=== PATIENT | male | born 1985 | race Hispanic/Latino ===

== ENCOUNTER 2018-12-08 01:02 | Inpatient (IN) | payer SELFPAY ==
[2018-12-08 01:48] LABS: Absolute Lymphocytes (CBC) 1.1 K/uL (0.7-4.9); Absolute Monocytes 0.7 K/uL (0.1-1.3); Absolute Neutrophil 8.6 K/uL (1.8-8.0); Basophils % 0.5 % (0-1.3); Eosinophils % 2.8 % (0-4.4); Hematocrit 41.5 % (39.6-49.0); Lymphocytes % 10.6 % (15.3-44.8); MPV 9.4 fL (7.6-11.3); Monocytes % 6.5 % (3.3-12.3); RBC Red Blood Cell Count 4.92 M/uL (4.33-5.43)
[2018-12-08 02:04] LABS: Albumin 3.6 g/dL (3.4-5.0); Bilirubin Direct 0.7 mg/dL (0-0.2); Bilirubin Total 1.4 mg/dL (0.2-1.0); Potassium 3.6 mmol/L (3.5-5.1); Protein, Total 7.8 g/dL (6.4-8.2)
[2018-12-08] MEDS ORDERED: NA CHLORIDE 0.9% 1,000 ML ONE (02:13)
[2018-12-08] MEDS ORDERED: PIPER/TAZO/NS 3.375gm 3.375 GM/100 ML BAG ONE (05:52)
[2018-12-08] MEDS ORDERED: ACETAMINOPHEN 500 MG TAB ONE ×2 (07:02→08:43)
--- NOTE | 2018-12-08 07:10 | ER ---
Nurse's Notes [facility] Name: Adriano Miller Age: 33 yrs Sex: Male : 1985 Arrival Date: 12/08/2018 Time: 01:07 Bed 13 Private MD: Diagnosis: Cholecystitis, unspecified Presentation: 12/08 01:08 Presenting complaint: Patient states: I began having abdominal pain on Thursday after jb4 being prescribed medications for an ear infection. 01:08 Transition of care: patient was not received from another setting of care. Onset of jb4 symptoms was December 06, 2018. Risk Assessment: Do you want to hurt yourself or someone else? Patient reports no desire to harm self or others. Initial Sepsis Screen: Does the patient meet any 2 criteria? RR > 20 per min. HR > 90 bpm. Yes Does the patient have a suspected source of infection? Yes: Acute abdominal pain If YES to both, name of provider notified: Lorenzo VARGAS Care prior to arrival: None. 01:08 Method Of Arrival: Ambulatory jb4 01:08 Acuity: ELIZABETH 3 jb4 Triage Assessment: 07:00 General: Appears in no apparent distress. uncomfortable, ill, Behavior is calm, bp cooperative, appropriate for age. Historical: - Allergies: 01:08 No Known Allergies; jb4 - Home Meds: 01:08 Motrin Oral [Active]; Cipro Oral [Active]; jb4 - PMHx: 01:08 None; jb4 - PSHx: 01:08 Knee surgery; jb4 - Immunization history:: Adult Immunizations up to date. - Social history:: Smoking status: Patient/guardian denies using tobacco, Patient/guardian denies using alcohol. - Ebola Screening: : No symptoms or risks identified at this time. Screenin:13 Abuse screen: Denies threats or abuse. Nutritional screening: No deficits noted. jb4 Tuberculosis screening: No symptoms or risk factors identified. Fall Risk IV access (20 points). Total Hernandez Fall Scale indicates No Risk (0-24 pts). Assessment: 01:08 General: Appears in no apparent distress. uncomfortable, Behavior is calm, cooperative, jb4 appropriate for age. Pain: Complains of pain in epigastric area and right upper quadrant Pain does not radiate. Pain currently is 6 out of 10 on a pain scale. Quality of pain is described as stabbing. Neuro: Level of Consciousness is awake, alert, obeys commands, Oriented to person, place, time, situation. Cardiovascular: Patient's skin is warm and dry. Respiratory: Reports pain with respiration Airway is patent Respiratory effort is even, unlabored, Respiratory pattern is regular, symmetrical. GI: Bowel sounds present X 4 quads. Abd is soft X 4 quads Abd is non tender in umbilical area, suprapubic area, left upper quadrant, right lower quadrant and left lower quadrant Abdomen is tender to palpation in epigastric area and right upper quadrant Reports upper abdominal pain. : No signs and/or symptoms were reported regarding the genitourinary system. EENT: No signs and/or symptoms were reported regarding the EENT system. Derm: Skin is intact, Skin is pink, warm \T\ dry. Musculoskeletal: Circulation, motion, and sensation intact. 02:13 Reassessment: Patient appears in no apparent distress at this time. Patient and/or jb4 family updated on plan of care and expected duration. Pain level reassessed. Patient is alert, oriented x 3, equal unlabored respirations, skin warm/dry/pink. Pt taken to CT. 03:20 Reassessment: Patient appears in no apparent distress at this time. Patient and/or jb4 family updated on plan of care and expected duration. Pain level reassessed. Patient is alert, oriented x 3, equal unlabored respirations, skin warm/dry/pink. 04:34 Reassessment: Patient appears in no apparent distress at this time. Patient and/or jb4 family updated on plan of care and expected duration. Pain level reassessed. Patient is alert, oriented x 3, equal unlabored respirations, skin warm/dry/pink. Patient states feeling better. 05:33 Reassessment: Patient appears in no apparent distress at this time. Patient and/or jb4 family updated on plan of care and expected duration. Pain level reassessed. Patient is alert, oriented x 3, equal unlabored respirations, skin warm/dry/pink. 06:20 Reassessment: Pt reports feeling like his temp is increasing, temp rechecked. Temp 99.0 jb4 oral. 06:50 Reassessment: Pt reports having a headache, provider notified, see MAR for orders. jb4 07:00 Reassessment: RECD REPORT FROM BERNARDO BOND. 33YO HM P/W ABDOMINAL PAIN. PERICARDIAL AND bp PLEURAL EFFUSION NOTED ON CT. ADMIT IN PROCESS. 08:01 Reassessment: OR AT B/S FOR TRANSPORT. bp Vital Signs: 01:08 BP 128 / 73; Pulse 107; Resp 24; Temp 98.8(O); Pulse Ox 96% on R/A; Weight 104.33 kg jb4 (R); Height 5 ft. 11 in. (180.34 cm) (R); Pain 6/10; 03:15 BP 103 / 78; Pulse 113; Resp 16; Pulse Ox 95% on R/A; jb4 04:34 BP 108 / 73; Pulse 99; Resp 16; Pulse Ox 93% on R/A; jb4 05:30 BP 119 / 73; Pulse 111; Resp 20; Temp 99.3; Pulse Ox 94% on R/A; jb4 06:15 BP 114 / 69; Pulse 107; Resp 20; Temp 99.0(O); Pulse Ox 95% on R/A; jb4 07:00 BP 130 / 89; Pulse 115; Resp 16; Pulse Ox 97% on 2 lpm NC; bp 07:56 BP 116 / 80; Pulse 122; Resp 20; Temp 99.8; Pulse Ox 96% on 2 lpm NC; bp 01:08 Body Mass Index 32.08 (104.33 kg, 180.34 cm) jb4 ED Course: 01:07 Patient arrived in ED. ds1 01:08 Earl García, RONDA is Primary Nurse. jb4 01:08 Arm band placed on right wrist. jb4 01:13 Lorenzo Cooper PA is PHCP. jmm 01:13 Edgardo Levy MD is Attending Physician. jmm 01:20 Triage completed. jb4 01:45 Inserted saline lock: 20 gauge in right antecubital area, using aseptic technique. jb4 Blood collected. 01:57 Radiology exam delayed due to lab results not completed at this time. (BUN/Creatinine). kw1 02:00 Initial lab(s) drawn, by me, sent to lab. First set of blood cultures drawn by me, jb4 Second set of blood cultures drawn by me. 02:13 Patient has correct armband on for positive identification. Placed in gown. Bed in low jb4 position. Call light in reach. Side rails up X 1. Pulse ox on. NIBP on. 02:38 CT Abd/Pelvis - W/Contrast In Process Unspecified. EDMS 07:09 Jaun Howard MD is Hospitalizing Provider. tw4 08:05 No provider procedures requiring assistance completed. Patient admitted, IV remains in bp place. Administered Medications: 02:00 Drug: NS 0.9% 1000 ml Route: IV; Rate: 1 bolus; Site: right antecubital; jb4 03:00 Follow up: Response: No adverse reaction; IV Status: Completed infusion; IV Intake: jb4 1000ml 05:45 Drug: Zosyn 3.375 grams Route: IVPB; Infused Over: 60 mins; Site: right antecubital; jb4 06:45 Follow up: Response: No adverse reaction; IV Status: Completed infusion; IV Intake: jb4 100ml 06:54 Drug: Tylenol 500 mg Route: PO; jb4 Intake: 03:00 IV: 1000ml; Total: 1000ml. jb4 06:45 IV: 100ml; Total: 1100ml. jb4 Outcome: 07:09 Decision to Hospitalize by Provider. tw4 08:06 Admitted to OR accompanied by nurse, family with patient, via wheelchair, with chart. bp 08:06 Condition: stable 08:06 Instructed on the need for admit. 08:11 Patient left the ED. bp Signatures: Dispatcher [employer] EDHI Lorenzo Cooper PA PA jmm Sanford, Demi ds1 Earl García RN RN jb4 Vahid Mccoy RN RN bp Veronica Mohan kw1 Edgardo Levy MD MD tw4 Corrections: (The following items were deleted from the chart) 05:50 01:08 Respiratory: Airway is patent Respiratory effort is even, unlabored, Respiratory jb4 pattern is regular, symmetrical, jb4 07:55 07:30 BP 130 / 89; Pulse 115bpm; Resp 16bpm; Pulse Ox 97% 2 lpm Nasal Cannula; Temp bp 98.5F; bp
--- NOTE | 2018-12-08 07:10 | EDPHYS ---
Physician Documentation [facility] Name: Adriano Miller Age: 33 yrs Sex: Male : 1985 Arrival Date: 12/08/2018 Time: 01:07 Bed 13 Private MD: ED Physician Edgardo Levy HPI: 12/08 01:14 This 33 yrs old Male presents to ER via Ambulatory with complaints of jmm Abdominal Pain. 01:14 The patient presents with abdominal pain. Onset: The symptoms/episode began/occurred jmm gradually, 1 day(s) ago. The symptoms do not radiate. Associated signs and symptoms: Pertinent negatives: nausea and vomiting, diarrhea. The symptoms are described as achy. This is a 33 year old male with no chronic medical conditions that presents to the ED with complaints of abdominal pain beginning this past Thursday. Denies vomiting or diarrhea. Patient is currently on cipro for otitis media. . Historical: - Allergies: 01:08 No Known Allergies; jb4 - Home Meds: 01:08 Motrin Oral [Active]; Cipro Oral [Active]; jb4 - PMHx: 01:08 None; jb4 - PSHx: 01:08 Knee surgery; jb4 - Immunization history:: Adult Immunizations up to date. - Social history:: Smoking status: Patient/guardian denies using tobacco, Patient/guardian denies using alcohol. - Ebola Screening: : No symptoms or risks identified at this time. ROS: 01:14 Eyes: Negative for injury, pain, redness, and discharge, Cardiovascular: Negative for jmm chest pain, palpitations, and edema, Respiratory: Negative for shortness of breath, cough, wheezing, and pleuritic chest pain. 01:14 Constitutional: Positive for fever. 01:14 Abdomen/GI: Positive for abdominal pain. 01:14 All other systems are negative. Exam: 01:14 Constitutional: This is a well developed, well nourished patient who is awake, alert, jmm and in no acute distress. Head/Face: atraumatic. Eyes: EOMI, no conjunctival erythema appreciated ENT: Moist Mucus Membranes Neck: Trachea midline, Supple Chest/axilla: Normal chest wall appearance and motion. Cardiovascular: Regular rate and rhythm. No edema appreciated Respiratory: Normal respirations, no respiratory distress appreciated Abdomen/GI: Non distended, soft Back: Normal ROM Skin: General appearance color normal MS/ Extremity: Moves all extremities, no obvious deformities appreciated, no edema noted to the lower extremities Neuro: Awake and alert, normal gait Psych: Behavior is normal, Mood is normal, Patient is cooperative and pleasant 01:14 Abdomen/GI: Inspection: abdomen appears normal, Bowel sounds: normal, Palpation: soft, moderate abdominal tenderness, in the right upper quadrant. Vital Signs: 01:08 BP 128 / 73; Pulse 107; Resp 24; Temp 98.8(O); Pulse Ox 96% on R/A; Weight 104.33 kg jb4 (R); Height 5 ft. 11 in. (180.34 cm) (R); Pain 6/10; 03:15 BP 103 / 78; Pulse 113; Resp 16; Pulse Ox 95% on R/A; jb4 04:34 BP 108 / 73; Pulse 99; Resp 16; Pulse Ox 93% on R/A; jb4 05:30 BP 119 / 73; Pulse 111; Resp 20; Temp 99.3; Pulse Ox 94% on R/A; jb4 06:15 BP 114 / 69; Pulse 107; Resp 20; Temp 99.0(O); Pulse Ox 95% on R/A; jb4 07:00 BP 130 / 89; Pulse 115; Resp 16; Pulse Ox 97% on 2 lpm NC; bp 07:56 BP 116 / 80; Pulse 122; Resp 20; Temp 99.8; Pulse Ox 96% on 2 lpm NC; bp 01:08 Body Mass Index 32.08 (104.33 kg, 180.34 cm) [facility] MDM: 01:14 Patient medically screened. [facility] 12/08 01:17 Order name: Basic Metabolic Panel; Complete Time: 02:06 [facility] 12/08 01:17 Order name: CBC with Diff; Complete Time: 01:52 [facility] 12/08 01:17 Order name: Creatinine for Radiology; Complete Time: 02:06 [facility] 12/08 01:17 Order name: Hepatic Function; Complete Time: 02:06 [facility] 12/08 01:17 Order name: Lipase; Complete Time: 02:06 [facility] 12/08 01:17 Order name: Blood Culture Adult (2) [facility] 12/08 01:17 Order name: Lactate; Complete Time: 02:06 [facility] 12/08 07:14 Order name: Basic Metabolic Panel [facility] 12/08 07:14 Order name: Basic Metabolic Panel [facility] 12/08 07:14 Order name: CBC with Automated Diff [facility] 12/08 07:14 Order name: CBC with Automated Diff [facility] 12/08 07:14 Order name: Lipase [facility] 12/08 07:14 Order name: Lipase [facility] 12/08 07:14 Order name: Liver (Hepatic) Function [facility] 12/08 01:17 Order name: IV Saline Lock; Complete Time: 02:22 [facility] 12/08 01:17 Order name: Labs collected and sent; Complete Time: 02:22 [facility] 12/08 01:19 Order name: CT Abd/Pelvis - W/Contrast [facility] 12/08 07:14 Order name: NPO [facility] 12/08 07:14 Order name: Liver (Hepatic) Function [facility] 12/08 07:43 Order name: US Abdomen Complete tw4 Administered Medications: 02:00 Drug: NS 0.9% 1000 ml Route: IV; Rate: 1 bolus; Site: right antecubital; jb4 03:00 Follow up: Response: No adverse reaction; IV Status: Completed infusion; IV Intake: jb4 1000ml 05:45 Drug: Zosyn 3.375 grams Route: IVPB; Infused Over: 60 mins; Site: right antecubital; jb4 06:45 Follow up: Response: No adverse reaction; IV Status: Completed infusion; IV Intake: jb4 100ml 06:54 Drug: Tylenol 500 mg Route: PO; jb4 Disposition: 07:07 Co-signature as Attending Physician, Edgardo Levy MD I agree with the assessment and 4 plan of care. Disposition: 12/08/18 07:09 Hospitalization ordered by Jaun Howard for Inpatient Admission. Preliminary diagnosis is Cholecystitis, unspecified. - Bed requested for Operating Room. - Status is Inpatient Admission. bp - Condition is Fair. - Problem is new. - Symptoms are unchanged. UTI on Admission? No Signatures: Dispatcher [employer] EDLA Taryn Benjamin Joel, PA PA jmm Williams, Irene, RN RN Earl García RN RN jb4 Vahid Mccoy RN RN bp Wadley, Terrence, MD MD tw4 Corrections: (The following items were deleted from the chart) 07:51 07:09 Hospitalization Ordered by Jaun Howard MD for Inpatient Admission. Preliminary bd diagnosis is Cholecystitis, unspecified. Bed requested for Telemetry/MedSurg (Inpatient). Status is Inpatient Admission. Condition is Fair. Problem is new. Symptoms are unchanged. UTI on Admission? No. tw4 08:02 07:51 12/08/2018 07:09 Hospitalization Ordered by Jaun Howard MD for Inpatient iw Admission. Preliminary diagnosis is Cholecystitis, unspecified. Bed requested for Telemetry/MedSurg (Inpatient). Status is Inpatient Admission. Condition is Fair. Problem is new. Symptoms are unchanged. UTI on Admission? No. bd 08:11 08:02 12/08/2018 07:09 Hospitalization Ordered by Jaun Howard MD for Inpatient bp Admission. Preliminary diagnosis is Cholecystitis, unspecified. Bed requested for Operating Room. Status is Inpatient Admission. Condition is Fair. Problem is new. Symptoms are unchanged. UTI on Admission? No. iw
[2018-12-08] MEDS ORDERED: MORPHINE 4 MG/ML SYR IV PRN (07:12)
[2018-12-08] MEDS ORDERED: D5 0.45 NS 1,000 ML IV SCH (08:00)
[2018-12-08] MEDS ORDERED: BUPIVACAINE 0.5% PF 10 ML VIAL ONE (08:15)
--- NOTE | 2018-12-08 08:23 | RAD REPORT ---
EXAM DESCRIPTION: US - Abdomen Exam Limited - 12/08/2018 8:07 am CLINICAL HISTORY: Abdominal pain COMPARISON: CT study December 08 FINDINGS: Gallbladder size is normal. No gallstones are identified. No significant quantity of sludg e seen. Gallbladder wall is thickened. There is a trace amount of pericholecystic fluid seen. Common bile duct is normal with no common duct stone identified. IMPRESSION: Gallbladder wall is thickened with pericholecystic fluid. No gallstones identifiable. Findings could represent an acalculous cholecystitis if there are supporting clinical findings. Gallb ladder findings are potentially a secondary response to acute hepatic parenchymal disease for a syste luis alberto illness not otherwise evident on available imaging.
[2018-12-08] MEDS ORDERED: Ringers Lactate 1,000 ML IV ONE (08:25)
[2018-12-08] MEDS ORDERED: PROPOFOL 200 MG/20 ML VIAL IV ONE (08:30)
[2018-12-08] MEDS ORDERED: ROCURONIUM 50 MG/5 ML VIAL IV ONE (08:31)
[2018-12-08] MEDS ORDERED: GLYCOPYRROLATE 0.2 MG/ML SYR ONE (08:32)
[2018-12-08] MEDS ORDERED: LIDOCAINE 2% MPF 5 ML VIAL ONE (08:34)
[2018-12-08] MEDS ORDERED: FENTANYL CITR 250 MCG/5 ML ONE (08:34)
[2018-12-08] MEDS ORDERED: MIDAZOLAM HCL 2 MG/2 ML INJ ONE (08:36)
[2018-12-08] MEDS ORDERED: ONDANSETRON 4 MG/2 ML VIAL ONE (08:39)
[2018-12-08] MEDS ORDERED: NEOSTIGMINE 1 MG/ML -10 ML VIAL ONE (08:39)
[2018-12-08 09:56] VITALS: BMI 32.1
--- NOTE | 2018-12-08 10:17 | ECHO ---
HEIGHT: 5 ft 11 in WEIGHT: 230 lb 0 oz DATE OF STUDY: 12/08/[address]: Jaun Howard MD 2-DIMENSIONAL: YES M.MODE: YES DOPPLER: YES COLOR FLOW: YES TDS: NO PORTABLE: NO DEFINITY: NO BUBBLE STUDY: NO DIAGNOSIS: FLUID AROUND HEART CARDIAC HISTORY: CATHERIZATION: NO SURGERY: NO PROSTHETIC VALVE: NO PACEMAKER: NO MEASUREMENTS (cm) DIASTOLIC (NORMALS) SYSTOLIC (NORMALS) IVSd 1.2 (0.6-1.2) LA Diam 4.0 (1.9-4.0) LVEF 58% LVIDd 5.0 (3.5-5.7) LVIDs 3.5 (2.0-3.5) %FS 31% LVPWd 1.4 (0.6-1.2) Ao Diam 2.8 (2.0-3.7) 2 DIMENSIONAL ASSESSMENT: RIGHT ATRIUM: NORMAL LEFT ATRIUM: NORMAL RIGHT VENTRICLE: NORMAL LEFT VENTRICLE: NORMAL TRICUSPID VALVE: NOMRAL MITRAL VALVE: NORMAL PULMONIC VALVE: NORMAL AORTIC VALVE: NORMAL PERICARDIAL EFFUSION: SMALL TO MODERATE AORTIC ROOT: NORMAL LEFT VENTRICULAR WALL MOTION: NORMAL. DOPPLER/COLOR FLOW: NORMAL. COMMENTS: SMALL TO MODERATE PERICARDIAL EFFUSION AROUND THE VENTRICLES. NO TAMPONADE FINDINGS ON ECHO. OTHERWISE NORMAL 2D ECHO WITH DOPPLER. TECHNOLOGIST: JOVON HORTA
--- NOTE | 2018-12-08 10:31 | RAD REPORT ---
EXAM DESCRIPTION: CT - Head Brain Wo Cont - 12/08/2018 10:22 am CLINICAL HISTORY: Fever, headache COMPARISON: None. TECHNIQUE: Axial 5 mm thick images of the head were obtained without IV contrast. All CT scans are performed using dose optimization technique as appropriate and may include automated exposure control or mA/KV adjustment according to patient size. FINDINGS: No intracranial hemorrhage, mass, edema or shift of mid-line structures. No acute infarcti on changes seen. No abnormal extra-axial fluid collections. Ventricles are normal. Mastoid air cells and visualized portions of the paranasal sinuses are clear. No acute bony findings. IMPRESSION: Negative non-contrast CT head examination.
[2018-12-08] MEDS: FOLIC ACID 1 MG TABLET PO SCH (10:33)
[2018-12-08] MEDS: METHYLPREDNISOLONE 40 MG INJ IV SCH ×2 (10:33→16:00)
[2018-12-08] MEDS: THIAMINE HCL 100 MG TABLET PO SCH (10:33)
[2018-12-08] MEDS: FAMOTIDINE 20 MG TAB PO SCH ×2 (10:33→20:18)
[2018-12-08] MEDS: IBUPROFEN 400 MG TAB PO PRN (12:01)
[2018-12-08 12:54] LABS: RPR Titer ND
[2018-12-08 13:17] LABS: Urine Appearance CLEAR; Urine Blood 2+ (NEG); Urine Color DK YELLOW; Urine Glucose NEGATIVE (NEG); Urine Protein 1+ (NEG); Urine Specific Gravity >=1.030 (1.005-1.030); Urine pH 5.5 (5.0-7.0)
[2018-12-08 13:28] LABS: Barbiturates NEGATIVE (NEGATIVE); Benzodiazepines NEGATIVE (NEGATIVE); Cocaine NEGATIVE (NEGATIVE); METHAMPHETAM NEGATIVE (NEGATIVE); Methadone NEGATIVE (NEGATIVE); Opiates POSITIVE (NEGATIVE); Phencyclidine NEGATIVE (NEGATIVE); THC Cannibis NEGATIVE (NEGATIVE)
[2018-12-08 13:35] LABS: Urine Bilirubin 1+ (NEG); Urine Microscopic Reflex ORDER UMIC
--- NOTE | 2018-12-08 13:41 | RAD REPORT ---
EXAM DESCRIPTION: CT - Abdomen Pelvis W Contrast - 12/08/2018 4:23 am CLINICAL HISTORY: 33-year-old male with abdominal pain after being prescribed medications for an ear infection TECHNIQUE: Axial CT imaging of the abdomen and pelvis was performed following the administration of intravenous contrast.. Sagittal and coronal reconstructed images were then performed. The CT stud y is performed according to ALARA (as low as reasonably achievable) or ALARA/IMAGE GENTLY, with autom atic adjustment of mA and/or kV according to patient size. Performed on: 12/08/2018 at 2:26 AM. COMPARISON: None FINDINGS: Lung bases: There is a very small right pleural effusion. There is very mild patchy hazy p arenchymal opacification in the lung bases which may be due to atelectasis or possibly inflammatory c hanges. Incidentally noted is a small pericardial effusion measuring approximately 1.2 cm at the leve l of the left cardiac apex. Liver: The liver is mildly enlarged and measures 19.5 cm in craniocaudal dimension. No focal hepatic abnormalities are identified. Liver attenuation is within normal limits. Spleen: The spleen is top normal in size and measures approximately 12.8 cm in greatest sagittal dime nsion. No focal splenic abnormalities are identified. Gallbladder and bile duct: The gallbladder is well distended. There are areas of increased attenuat ion within the gallbladder lumen which may be due to cholelithiasis. There is no biliary ductal dilat ation. Pancreas: The pancreas is grossly normal in size and configuration. Adrenal Glands: The adrenal glands are normal in size and configuration. Kidneys: The kidneys are normal in size and configuration. There is no evidence of hydronephrosis. Th ere is no evidence of nephrolithiasis. No definite solid or cystic renal mass lesions are identified. Stomach: The stomach is grossly normal. There is no definite hiatal hernia. Bowel: The bowel gas pattern is non specific and non obstructive. Appendix: The appendix is normal. Free air: There is no evidence of free air. Free fluid: There is a trace amount of ascites within the abdomen and small amount of ascites in the pelvis posterior to the bladder. Vasculature: The aorta is normal in caliber and contour. The inferior vena cava is grossly unremarkab le. Lymphadenopathy: No pathologic lymphadenopathy is identified. Bladder: The bladder is well distended and smooth in contour. Reproductive: The prostate gland is grossly within normal limits. Bones: No acute osseous abnormalities are identified. Soft tissues: There is mild infiltration of the mesenteric fat within the right anterior upper quadra nt and adjacent to the gallbladder fossa possibly related to underlying acute gallbladder pathology. IMPRESSION: 1. Small pericardial effusion measuring approximately 1.2 cm in diameter at the level of the left cardiac apex. 2. Small right pleural effusion and mild patchy hazy parenchymal opacification in the lung bases whic h may be due to atelectasis or possibly inflammatory changes. 3. Mild hepatomegaly and borderline splenomegaly. 4. Suspect cholelithiasis. 5. Small amount of ascites in the abdomen and pelvis of uncertain etiology. There is mild infiltratio n of the mesenteric fat within the right anterior upper quadrant and adjacent to the gallbladder ronald a possibly related to underlying acute gallbladder pathology. Electronically signed by: Isabel Alfaro DO 12/08/2018 2:55 AM CDT Due to temporary technical issues with the PACS/Fluency reporting system, reports are being signed by the in house radiologist as a courtesy to ensure prompt reporting. The interpreting radiologist is f ully responsible for the content of the report.
[2018-12-08 13:56] LABS: Urine Bacteria <20 /HPF (NONE SEEN)
[2018-12-08 13:57] LABS: Urine Culture Reflex Order NOT NEEDED
[2018-12-08] MEDS: D5 0.45 NS 1,000 ML IV SCH (14:00)
--- NOTE | 2018-12-08 14:19 | P.CNS ---
Date of Consult: 12/08/18 Reason for Consult: Medical Management Requesting Physician: Jaun Howard Primary Care Provider: none Chief Complaint: Fatigue, abdominal pain History of Present Illness: 33-year-old male presented to the emergency room with fatigue, abdominal pain. Patient reports that since Thursday he has been feeling somewhat tired. Over the weekend he developed some abdominal pain to the epigastric region. He also reported fever and chills. He went to a urgent care facility on Thursday. He was told that he had ear infection. He was given Cipro and ibuprofen. He was also given Rocephin IM. Patient was to come to the clinic daily for injections of antibiotics thereafter. The following day patient reported increasing abdominal pain to the epigastric region. He rated the pain about a 7/10. He also reported some chest pressure with some shortness of breath. He denied any nausea, and some headaches and fever noted. His condition did not improve. He came to the ER for further evaluation. In the ER patient evaluated. There was some suspicion for cholelithiasis Slight elevation in bilirubin noted. White count 10.7, hemoglobin 14. Sodium 140 , potassium 3.6. Patient was admitted to surgical service for further evaluation. Upon evaluation by surgery CT scan also revealed pericardial effusion, right pleural effusion with atelectasis, and hepatic megaly/splenomegaly. I was consulted for further evaluation. Allergies No Known Allergies Allergy (Verified 12/08/18 10:18) Home medications list reviewed: Yes Home Medications: Ciprofloxacin HCl [Cipro 500 MG Tablet] 1 tab PO BID 12/08/18 Ibuprofen 800 mg PO TID PRN 12/08/18 - Past Medical/Surgical History Diabetic: No Past Medical History: Patient denies medical history -: knee meniscus repair right Psychosocial/ Personal History: Patient is . He has no children. He works. - Family History Mother Medical History: Hypertension, Diabetes - Social History Smoking Status: Never smoker Alcohol use: No CD- Drugs: No Caffeine use: Yes Place of Residence: Home Review of Systems General: Fever, Chills, Weakness, Malaise Eyes: Unremarkable ENT: As per HPI Respiratory: Shortness of Breath, As per HPI Cardiovascular: As per HPI Gastrointestinal: Abdominal Pain, As per HPI Genitourinary: Unremarkable Musculoskeletal: As per HPI Integumentary: Unremarkable Neurological: As per HPI Lymphatics: Unremarkable Physical Examination Temp Pulse Resp BP Pulse Ox 101.3 F H 112 H 20 126/68 95 12/08/18 12:00 12/08/18 12:00 12/08/18 12:00 12/08/18 12:00 12/08/18 09:51 General: Alert, In no apparent distress, Oriented x3, Cooperative HEENT: Atraumatic, Normocephalic, PERRLA, Mucous membr. moist/pink Neck: Supple, No Thyromegaly Respiratory: Clear to auscultation bilaterally, Normal air movement Cardiovascular: Abnormal pulses (Sinus tachycardia) Gastrointestinal: Normal bowel sounds, Soft and benign, Non-distended, No masses , No rebound, No guarding, Tenderness (Minimal tenderness to the epigastric region) Musculoskeletal: No erythema, No tenderness, No warmth Integumentary: No tenderness/swelling, No erythema, No warmth, No cyanosis Neurological: Normal speech, Normal strength at 5/5 x4 extr, Normal tone, Normal affect Laboratory Data (last 24 hrs) 12/08/18 01:32: Creatinine 1.06 12/08/18 01:32: WBC 10.7, Hgb 14.3, Hct 41.5, Plt Count 199 12/08/18 01:32: Sodium 140, Potassium 3.6, BUN 12, Creatinine 1.07, Glucose 104 , Total Bilirubin 1.4 H, AST 38 H, ALT 77, Alkaline Phosphatase 126 H, Lipase 49 L Conclusions/Impression: Impression: Fever, epigastric abdominal pain, shortness of breath complicated with pericarditis/pericardial effusion, right pleural effusion with atelectasis, hepatomegaly/splenomegaly likely related to viral illness Cholelithiasis Plan: Will continue with aggressive IV fluids. Blood cultures obtained. CT scan unremarkable. Will evaluate further. Lab including hepatitis, HIV, syphilis, autoimmune disease to be further addressed. Echocardiogram reviewed with cardiology. Patient with pericarditis/pericardial effusion likely viral related. Patient started on IV steroids. Will hold off on antibiotic therapy at this time as this is likely viral related. Patient reassessed this afternoon. Patient with fever but appears improved. Will provide ice packs and medication for fever. Continue to monitor and adjust medication. Will monitor closely. Patient does not appear septic at this time. Case discussed with surgery. No surgical intervention needed at this time. Will start with clear liquid diet and advance as tolerated. Anticipate discharge in the next 24 -48 hr. Time Spent Managing Pts care (In Minutes): 55
--- NOTE | 2018-12-08 15:05 | CON ---
Additional Attending Physician: Dr. Fuentes. Reason For Consult: Pericardial effusion. History Of Present Illness: Mr. Miller has been having chest pain for about 4 days. Before that, alisson hassan felt mildly ill. Within the past few months, he has had an ear infection, treated with antibiotics , apparently a middle ear infection. The pain he has been having is very much pleuritic in nature, t aking a deep breath makes it worse, lying flat makes it worse, sitting up makes it better. He had a CAT scan of the abdomen that showed some unspecified liver parenchymal disease, little bit of fluid a round the gallbladder. Findings consistent with acalculous cholecystitis and a pericardial effusion. The echo today shows a small to moderate effusion, centered around the ventricles. There is no reuben dence of tamponade by echo findings or by clinical findings and otherwise, the echo is normal and the Doppler study likewise is normal. The patient does not smoke, does not use any other tobacco, alcoh ol use minimal. No illegal drugs. There is no history of heart disease of any kind. No history of thyroid disease or arthritis or lupus. No previous history of pericarditis. Physical Examination: Vital Signs: 5 feet 11 inches, 230 pounds, body mass index 32.1. HEENT: Normal. Lungs: Clear. Abdomen: Soft. Heart: Within normal limits. There is no friction rub. Abdomen: Soft. Extremities: Normal. Impression: The patient has pericarditis. There is inflammation of the pericardial, not sure if it is postviral with his ear infection or if there is underlying lupus or some other connective tissue i nflammatory disorder. I would recommend we give him steroids such as Solu-Medrol 40 mg daily IV and then a short course of steroids as an outpatient. Dr. Fuentes has long stressed to do a number of blo od tests looking for potential viral causes of hepatitis, looking for lupus, rheumatoid arthritis, in fectious mono and other such diseases. I think his pain and his pericarditis can most likely be reli eved with steroids. ROCIO/STEVIE Voice ID: [id number] Report ID: [id number]
[2018-12-08] MEDS: ACETAMINOPHEN 500 MG TAB PO PRN ×2 (15:45→20:19)
--- NOTE | 2018-12-08 16:50 | EKG ---
Test Date: 2018-12-08 Test Time: 09:35:48 Criminal Research Specialist: BERNABE MEASUREMENT RESULTS: Intervals: Rate: 115 AK: 130 QRSD: 84 QT: 326 QTc: 450 [place]: P: 61 AK: 130 QRS: 81 T: 13 INTERPRETIVE STATEMENTS: Sinus tachycardia ST & T wave abnormality, consider inferior ischemia ST & T wave abnormality, consider anterior ischemia Abnormal ECG No previous ECG available for comparison Electronically Signed On 12-08-18 16:49:00 CDT by Hudson Russell
--- NOTE | 2018-12-08 19:41 | HP ---
Date of Admission: 12/08/2018 Reason: Gallstone with Pollard sign. History Of Present Illness: The patient is a 33-year-old gentleman who was admitted with two-day his tory of epigastric right upper quadrant pain associated with fever and chills. No nausea or vomiting . No diarrhea or constipation. No blood in his stool. No dysuria or hematuria. Has not had simila r episodes in the past. Not related to food although his appetite has been poor. I was contacted by the Emergency Room and told that patient had gallstones and Pollard's sign. His LFTs were essentiall y unremarkable and I was told he had no medical issues. Therefore the patient was admitted to [facility] and tentatively scheduled for the OR. Review of Systems: The patient is on Cipro for ear infections. Review of systems otherwise unremarkable. Past Medical History: Negative. Past Surgical History: Right knee surgery. Allergies: NO ALLERGIES. Medications: Include Motrin and Cipro. Social History: He denies smoking or drinking alcohol. Family History: Significant for hypertension and diabetes. Physical Examination: Vital Signs: Temperature was 99.3 this morning. Heart rate is 122. Respiratory rate is 20. Blood pressure is within normal limits. General: He is awake, alert, and oriented x3. Head and Neck: Cranial nerves 2 through 12 are grossly within normal limits. No neck masses. No JV D. Throat clear. Neck is supple. Chest: Clear in the upper part. Heart: S1, S2. Abdomen: Soft. Minimal tenderness in the right upper quadrant. No rebound, rigidity, guarding. Extremity: Adequately perfused. Nontender. Neuro: Nonfocal. Laboratory Data: Shows electrolytes are within normal limits. Total bilirubin is slightly elevated at 1.4, direct bilirubin is 0.7. AST is 38, alkaline phosphatase is 126 and lipase is 49, lactic aci d is 2. The patient has an ultrasound, which showed gallbladder wall to be thickened with pericholec ystic fluid. No gallstones identified. Findings could represent acalculous cholecystitis. Gallblad emanuel findings are potentially secondary response to acute hepatic parenchymal disease for systemic ill ness and not otherwise evident on available imaging. The patient also had a CAT scan of the abdomen and pelvis done, which showed small pericardial effusion measuring 1.2 cm in diameter at the level of the left cardiac apex, small right pleural effusion, mild patchy hazy parenchymal opacification in t he lung base, which may be due to atelectasis or possible inflammatory changes. Mild hepatomegaly an d borderline splenomegaly. Suspect cholelithiasis. Small amount of ascites in the abdomen and pelvi s of uncertain etiology. Mild infiltration of the mesenteric fat within the right anterior upper bola drant adjacent to the gallbladder fossa possibly related to underlying acute gallbladder pathology. Assessment: A 33-year-old gentleman with abdominal pain, pericardial effusion, pleural effusion, pos sible cholecystitis. Recommendation: At this point, the patient needs a cardiac evaluation with an echo and cardiac clear ance. We will get the hospitalist consulting also as the patient has other medical issues need to be addressed and once those have been addressed completely then we will consider whether the gallbladde r is the source of the patient's problem. The patient may benefit from a HIDA scan, but the patient does not need any acute surgical intervention at this time. AURELIANO/STEVIE Voice ID: [id number]
[2018-12-08 21:04] LABS: RPR (Rapid Plasma Reagin) NON-REACT (NON-REACT)
[2018-12-09] MEDS: D5 0.45 NS 1,000 ML IV SCH ×2 (00:25→06:50)
[2018-12-09] MEDS: METHYLPREDNISOLONE 40 MG INJ IV SCH (00:25)
[2018-12-09] MEDS: IBUPROFEN 400 MG TAB PO PRN (00:29)
[2018-12-09 04:38] LABS: Absolute Lymphocytes (CBC) 0.6 K/uL (0.7-4.9); Absolute Monocytes 0.5 K/uL (0.1-1.3); Absolute Neutrophil 13.8 K/uL (1.8-8.0); Basophils % 0.1 % (0-1.3); Eosinophils % 0.3 % (0-4.4); Lymphocytes % 4.1 % (15.3-44.8); MPV 9.3 fL (7.6-11.3); Monocytes % 3.6 % (3.3-12.3); RBC Red Blood Cell Count 4.39 M/uL (4.33-5.43)
[2018-12-09 04:47] LABS: Albumin 2.9 g/dL (3.4-5.0); Bilirubin Direct 0.2 mg/dL (0-0.2); Bilirubin Total 0.6 mg/dL (0.2-1.0); Magnesium 2.3 mg/dL (1.8-2.4); Potassium 3.8 mmol/L (3.5-5.1); Protein, Total 6.9 g/dL (6.4-8.2)
[2018-12-09 05:03] LABS: Blood Morphology Comment NOT SEEN (NOT SEEN); Platelet Estimate ADEQ; Urine White Blood Cell Casts OK
[2018-12-09] MEDS ORDERED: D5 0.45 NS 1,000 ML IV SCH (08:00)
[2018-12-09] MEDS: FOLIC ACID 1 MG TABLET PO SCH (08:02)
[2018-12-09] MEDS: predniSONE 20 MG TAB PO SCH ×2 (08:02→20:14)
[2018-12-09] MEDS: FAMOTIDINE 20 MG TAB PO SCH ×2 (08:02→20:14)
[2018-12-09] MEDS: THIAMINE HCL 100 MG TABLET PO SCH (08:03)
[2018-12-09] MEDS: ASPIRIN EC 81 MG TAB PO SCH ×2 (08:07→08:29)
[2018-12-09] MEDS: METOPROLOL TAR 25 MG TAB PO SCH ×2 (08:07→17:11)
--- NOTE | 2018-12-09 11:07 | P.PN ---
Subjective Date of Service: 12/09/18 Primary Care Provider: none Chief Complaint: Fatigue, abdominal pain Subjective: Other (Patient has improved. Last fever at noon time yesterday. No significant abdominal pain. Slight nausea noted. Patient converted to atrial fibrillation this morning.) Physical Examination - Vital Signs Temperature: 97.5 F Blood Pressure: 119/58 Pulse: 93 Respirations: 18 Pulse Ox (%): 95 - Physical Exam General: Alert, In no apparent distress, Oriented x3, Cooperative HEENT: Atraumatic Neck: Supple Respiratory: Clear to auscultation bilaterally, Normal air movement Cardiovascular: Abnormal pulses (Atrial fibrillation, rate controlled) Gastrointestinal: Normal bowel sounds, Soft and benign, Non-distended, No masses , No rebound, No guarding Musculoskeletal: No erythema, No tenderness, No warmth Integumentary: No tenderness/swelling, No erythema, No warmth, No cyanosis Neurological: Normal speech, Normal strength at 5/5 x4 extr, Normal tone, Normal affect - Studies Medications List Reviewed: Yes Assessment & Plan Discharge Plan: Home Plan to discharge in: 24 Hours Physician Review Additional Text: Impression: Fever, epigastric abdominal pain, shortness of breath secondary to viral pericarditis/pericardial effusion, right pleural effusion with atelectasis, hepatomegaly/splenomegaly complicated with new onset atrial fibrillation Cholelithiasis Plan: Patient with new onset atrial fibrillation this morning. This was confirmed on EKG. Case discussed at length with cardiology. Will start low-dose beta- imelda-metoprolol and aspirin 81 mg daily. No need for anti coagulation at this time due to pericardial effusion. Encourage ambulation. Encourage oral intake. Case also discussed with surgery. No need for surgical intervention at this time. Still suspect this all related to viral illness. Will adjust IV fluids. Continue to monitor closely. Will monitor on telemetry closely. Will recheck chest x-ray. Anticipate discharge in the next 24 hr. If significantly improved. Time Spent Managing Pts Care (In Minutes): 55
[2018-12-09] MEDS: NACHLORIDE 0.45% 1,000 ML IV SCH ×2 (11:33→22:00)
--- NOTE | 2018-12-09 12:35 | RAD REPORT ---
EXAM DESCRIPTION: RAD - Chest Pa And Lat (2 Views) - 12/09/2018 12:05 pm CLINICAL HISTORY: Pleural effusion COMPARISON: CT abdomen December 08 TECHNIQUE: PA and lateral views of the chest were obtained. FINDINGS: The lungs are normal volume. Patchy left base opacification is present suspicious for left lung base pneumonia. Bilateral lung base atelectasis present. Heart size is upper normal. No vascu lar engorgement peer there is no pneumothorax. Minimal posterior gutter pleural effusion present not progressive from prior day chest film. No acute bony finding noted. No aortic abnormality. IMPRESSION: Left lung base pneumonia findings. Correlation is needed with exam findings. Small pleural effusion findings are stable from December 08 CT imaging.
[2018-12-09] MEDS: ACETAMINOPHEN 500 MG TAB PO PRN (13:43)
--- NOTE | 2018-12-09 15:22 | PN ---
Date of Progress Note: 12/09/2018 Mr. Miller, 33-year-old, admitted to Dr. Howard on 12/08/2018, was found yesterday to have pericardit is with pericardial effusion, was began on Solu-Medrol. Symptomatically, he is asymptomatic today; h owever, he developed atrial fibrillation with a rapid ventricular response. He has a low CHADS score . We will start him on aspirin 81 mg daily, start low dose beta-imelda 25 mg b.i.d. We will see ho w he does before making further recommendations. SONJA/STEVIE Voice ID: [id number] Report ID: [id number]
--- NOTE | 2018-12-09 17:07 | EKG ---
Test Date: 2018-12-09 Test Time: 07:53:05 Chief Librarian Music Department: BERNABE MEASUREMENT RESULTS: Intervals: Rate: 88 AL: QRSD: 88 QT: 382 QTc: 462 [place]: P: AL: QRS: 53 T: -3 INTERPRETIVE STATEMENTS: Atrial fibrillation ST & T wave abnormality, consider inferior ischemia or digitalis effect Prolonged QT Abnormal ECG Compared to ECG 12/08/2018 09:35:48 Prolonged QT interval now present Sinus tachycardia no longer present ST (T wave) deviation still present Possible ischemia still present Electronically Signed On 12-09-18 17:05:38 CDT by Hudson Russell
[2018-12-09] MEDS: ONDANSETRON 4 MG/2 ML VIAL IV PRN (17:09)
[2018-12-09] MEDS: CEFTRIAXONE/SWI 1gm 1 GM/10 ML SYR IVP SCH (17:55)
[2018-12-09] MEDS ORDERED: AZITHROMYCIN IV 500 MG in NA CHLORIDE 0.9% 250 ML IVPB SCH (18:00)
[2018-12-09] MEDS ORDERED: CETIRIZINE HCL 5 MG TABLET PO ONE (22:19)
[2018-12-10] MEDS: NACHLORIDE 0.45% 1,000 ML IV SCH ×4 (00:03→20:43)
[2018-12-10] MEDS: METOPROLOL TAR 25 MG TAB PO SCH ×2 (05:19→17:25)
[2018-12-10 06:18] LABS: ALT/SGPT 85 U/L (12-78); AST/SGOT 48 U/L (15-37); Albumin 2.6 g/dL (3.4-5.0); Alkaline Phosphatase 94 U/L (45-117); BUN Blood Urea Nitrogen 21 mg/dL (7-18); Bicarbonate 27 mmol/L (21-32); Bilirubin Total 0.4 mg/dL (0.2-1.0); Glucose Level 138 mg/dL (74-106); Magnesium 2.4 mg/dL (1.8-2.4); Potassium 4.1 mmol/L (3.5-5.1); Protein, Total 6.3 g/dL (6.4-8.2); Sodium Level 142 mmol/L (136-145)
--- NOTE | 2018-12-10 08:41 | RAD REPORT ---
EXAM DESCRIPTION: Lyssa Ann And Linsey (2 Views)12/10/2018 8:06 am CLINICAL HISTORY: Cough COMPARISON: December 09 FINDINGS: No significant change in mild left basilar lung opacities Cardiac silhouette remains mildly enlarged. IMPRESSION: No change in mild left basilar opacities which may represent atelectasis or pneumonia
[2018-12-10 08:49] LABS: Absolute Lymphocytes (CBC) 1.1 K/uL (0.7-4.9); Absolute Monocytes 0.9 K/uL (0.1-1.3); Absolute Neutrophil 13.7 K/uL (1.8-8.0); Basophils % 0.3 % (0-1.3); Eosinophils % 0.4 % (0-4.4); Hematocrit 35.4 % (39.6-49.0); Lymphocytes % 6.7 % (15.3-44.8); MPV 9.5 fL (7.6-11.3); Monocytes % 5.7 % (3.3-12.3); RBC Red Blood Cell Count 4.16 M/uL (4.33-5.43)
[2018-12-10] MEDS: FAMOTIDINE 20 MG TAB PO SCH ×2 (09:00→21:00)
[2018-12-10] MEDS ORDERED: AZITHROMYCIN IV 500 MG in NA CHLORIDE 0.9% 250 ML IVPB SCH (09:00)
[2018-12-10] MEDS ORDERED: CEFTRIAXONE 1 GM/NS 50 ML 1 GM/50 ML BAG IV SCH (09:00)
[2018-12-10] MEDS: THIAMINE HCL 100 MG TABLET PO SCH (09:27)
[2018-12-10] MEDS: FOLIC ACID 1 MG TABLET PO SCH (09:27)
[2018-12-10] MEDS: predniSONE 20 MG TAB PO SCH ×2 (09:28→20:42)
[2018-12-10] MEDS: ASPIRIN EC 81 MG TAB PO SCH (09:28)
[2018-12-10] MEDS: LACTOBACILLUS/ACIDOPHILUS TAB PO SCH ×2 (09:29→20:42)
[2018-12-10] MEDS: CEFTRIAXONE/SWI 1gm 1 GM/10 ML SYR IVP SCH (09:29)
[2018-12-10] MEDS ORDERED: ENOXAPARIN 100 MG/ML SYR SQ ONE (09:38)
[2018-12-10 09:44] LABS: Blood Morphology Comment NOT SEEN (NOT SEEN); Platelet Estimate ADEQ
[2018-12-10] MEDS: PROPAFENONE HCL 150 MG TAB PO SCH ×3 (10:44→20:41)
--- NOTE | 2018-12-10 12:20 | P.PN ---
Subjective Date of Service: 12/10/18 Primary Care Provider: none Chief Complaint: Fatigue, abdominal pain Subjective: Improving (Still in atrial fibrillation but with better rate control ) Physical Examination - Vital Signs Temperature: 97.8 F Blood Pressure: 119/78 Pulse: 87 Respirations: 20 Pulse Ox (%): 97 - Physical Exam General: Alert, In no apparent distress, Oriented x3, Cooperative HEENT: Atraumatic Neck: Supple Respiratory: Clear to auscultation bilaterally, Normal air movement Cardiovascular: Irregular heart rate/rhythm (Atrial fibrillation, rate controlled) Gastrointestinal: Normal bowel sounds, Soft and benign, Non-distended, No tenderness, No masses, No rebound, No guarding Musculoskeletal: No tenderness, No warmth Integumentary: No erythema, No warmth, No cyanosis Neurological: Normal speech, Normal strength at 5/5 x4 extr, Normal tone, Normal affect - Studies Medications List Reviewed: Yes Assessment & Plan Discharge Plan: Home Plan to discharge in: 24 Hours Physician Review Additional Text: Impression: Fever, epigastric abdominal pain, shortness of breath secondary to viral pericarditis/pericardial effusion, right pleural effusion with atelectasis, hepatomegaly/splenomegaly complicated with new onset atrial fibrillation Left lower lobe pneumonia Cholelithiasis Plan: Patient remains in atrial fibrillation. Case discussed with cardiology. Cardiology has added Rythmol. Patient to get 1 dose of Lovenox today. Continue with current medication. Adjustments in medication for pneumonia also adjusted. Patient currently on Rocephin. Continue to monitor. Continue steroid medication. Encourage incentive spirometer. Advance diet as tolerated. Encourage ambulation. Anticipate likely discharge in the next 24- 48 hr. Time Spent Managing Pts Care (In Minutes): 55
[2018-12-10] MEDS: ONDANSETRON 4 MG/2 ML VIAL IV PRN (14:47)
--- NOTE | 2018-12-10 15:24 | ECHO ---
HEIGHT: 5 ft 11 in WEIGHT: 230 lb 0 oz DATE OF STUDY: 12/10/[address]: Hudson Russell MD 2-DIMENSIONAL: YES M.MODE: YES DOPPLER: YES COLOR FLOW: YES TDS: NO PORTABLE: NO DEFINITY: NO BUBBLE STUDY: NO DIAGNOSIS: FOLLOW UP PERICARDIAL EFFUSION CARDIAC HISTORY: CATHERIZATION: NO SURGERY: NO PROSTHETIC VALVE: NO PACEMAKER: NO MEASUREMENTS (cm) DIASTOLIC (NORMALS) SYSTOLIC (NORMALS) IVSd 1.0 (0.6-1.2) LA Diam 4.3 (1.9-4.0) LVEF 59% LVIDd 4.7 (3.5-5.7) LVIDs 3.2 (2.0-3.5) %FS 31% LVPWd 1.1 (0.6-1.2) Ao Diam 2.9 (2.0-3.7) 2 DIMENSIONAL ASSESSMENT: RIGHT ATRIUM: NORMAL LEFT ATRIUM: DILATED RIGHT VENTRICLE: NORMAL LEFT VENTRICLE: NORMAL TRICUSPID VALVE: NORMAL MITRAL VALVE: NORMAL PULMONIC VALVE: NORMAL AORTIC VALVE: NORMAL PERICARDIAL EFFUSION: SMALL AORTIC ROOT: NORMAL LEFT VENTRICULAR WALL MOTION: NORMAL. DOPPLER/COLOR FLOW: NORMAL. COMMENTS: NORMAL LEFT VENTRICULAR EJECTION FRACTION. DILATED LEFT ATRIUM. SMALL PERICARDIAL EFFUSION, DECREASED IN SIZE SINCE 12/08/18. TECHNOLOGIST: NAHEED LEDEZMA
[2018-12-11] MEDS: METOPROLOL TAR 25 MG TAB PO SCH ×2 (06:07→17:07)
[2018-12-11 07:08] LABS: Albumin 2.7 g/dL (3.4-5.0); Bilirubin Total 0.4 mg/dL (0.2-1.0); Magnesium 2.5 mg/dL (1.8-2.4); Potassium 4.4 mmol/L (3.5-5.1); Protein, Total 6.5 g/dL (6.4-8.2)
[2018-12-11] MEDS: FAMOTIDINE 20 MG TAB PO SCH ×2 (08:32→21:54)
[2018-12-11] MEDS: predniSONE 20 MG TAB PO SCH (08:32)
[2018-12-11] MEDS: CEFTRIAXONE/SWI 1gm 1 GM/10 ML SYR IVP SCH (08:32)
[2018-12-11] MEDS: ASPIRIN EC 81 MG TAB PO SCH (08:33)
[2018-12-11] MEDS: LACTOBACILLUS/ACIDOPHILUS TAB PO SCH ×2 (08:33→21:54)
[2018-12-11] MEDS: FOLIC ACID 1 MG TABLET PO SCH (08:33)
[2018-12-11] MEDS: THIAMINE HCL 100 MG TABLET PO SCH (08:33)
[2018-12-11 08:38] LABS: Absolute Lymphocytes (CBC) 1.4 K/uL (0.7-4.9); Absolute Neutrophil 9.8 K/uL (1.8-8.0); Basophils % 0.3 % (0-1.3); Eosinophils % 5.4 % (0-4.4); Hematocrit 38.8 % (39.6-49.0); Lymphocytes % 10.9 % (15.3-44.8); MPV 9.1 fL (7.6-11.3); Monocytes % 7.9 % (3.3-12.3); RBC Red Blood Cell Count 4.57 M/uL (4.33-5.43)
[2018-12-11] MEDS: PROPAFENONE HCL 150 MG TAB PO SCH ×3 (09:56→21:56)
[2018-12-11] MEDS: ENOXAPARIN 100 MG/ML SYR SQ SCH ×2 (09:57→21:53)
--- NOTE | 2018-12-11 11:07 | P.PN ---
Subjective Date of Service: 12/11/18 Primary Care Provider: none Chief Complaint: Fatigue, abdominal pain Subjective: Improving (Patient remains in atrial fibrillation with rate control) Physical Examination - Vital Signs Temperature: 97.4 F Blood Pressure: 119/80 Pulse: 78 Respirations: 18 Pulse Ox (%): 96 - Physical Exam General: Alert, In no apparent distress, Oriented x3, Cooperative HEENT: Atraumatic Neck: Supple Respiratory: Clear to auscultation bilaterally, Normal air movement Cardiovascular: Irregular heart rate/rhythm (Atrial fibrillation, rate controlled) Gastrointestinal: Normal bowel sounds, No tenderness, No masses, No rebound, No guarding Musculoskeletal: No erythema, No tenderness, No warmth Integumentary: No tenderness/swelling, No erythema, No warmth, No cyanosis Neurological: Normal speech, Normal strength at 5/5 x4 extr, Normal tone - Studies Medications List Reviewed: Yes Assessment & Plan Discharge Plan: Home Plan to discharge in: 24 Hours Physician Review Additional Text: Impression: Fever, epigastric abdominal pain, shortness of breath secondary to viral pericarditis/pericardial effusion, right pleural effusion with atelectasis, hepatomegaly/splenomegaly complicated with new onset atrial fibrillation Left lower lobe pneumonia Cholelithiasis Plan: Patient remains in atrial fibrillation. Case discussed with cardiology. Repeat echocardiogram shows decreased pericardial effusion. Patient remains on Rythmol and metoprolol. If the patient remains in atrial fibrillation by tomorrow, cardiology plans for cardioversion. Case discussed with patient. Patient understands. Will decrease steroid medication. Will transition to oral antibiotic therapy for pneumonia. Continue with plan of care. Anticipate likely discharge in the next 24-48 hr. Time Spent Managing Pts Care (In Minutes): 55
--- NOTE | 2018-12-11 12:47 | PN ---
Mr. Miller remains in atrial fibrillation, so my plan is to increase the dose of Rythmol, continue t he anticoagulant, have him n.p.o. after midnight, and tomorrow if he is still in atrial fibrillation with cardioversion. We will get a consent for cardioversion. The patient seems to understand the pr ocedure, potential benefits, risks, and agrees to proceed. He is doing much better from the standpoi nt of his pericardial effusion. ROCIO/STEVIE Voice ID: [id number] Report ID: [id number]
[2018-12-11 13:21] LABS: Blood Morphology Comment NOT SEEN (NOT SEEN); Platelet Estimate ADEQ
[2018-12-11] MEDS ORDERED: CETIRIZINE HCL 5 MG TABLET PO PRN (20:47)
[2018-12-11] MEDS: AMOX/K CLAV 875 MG TAB PO SCH (21:53)
[2018-12-11] MEDS: predniSONE 10 MG TAB PO SCH (21:54)
[2018-12-12] MEDS: METOPROLOL TAR 25 MG TAB PO SCH (06:21)
[2018-12-12] MEDS ORDERED: BENZONATATE 100 MG CAP PO PRN (07:23)
--- NOTE | 2018-12-12 08:17 | P.PN ---
Subjective Date of Service: 12/12/18 Primary Care Provider: none Chief Complaint: Fatigue, abdominal pain Subjective: Other (Patient with cough and congestion this morning. Patient still in atrial fibrillation) Physical Examination - Vital Signs Temperature: 99.3 F Blood Pressure: 149/81 Pulse: 86 Respirations: 16 Pulse Ox (%): 95 - Physical Exam General: Alert, In no apparent distress, Oriented x3, Cooperative HEENT: Atraumatic Neck: Supple Respiratory: Clear to auscultation bilaterally, Normal air movement Cardiovascular: Irregular heart rate/rhythm (Atrial fibrillation, rate controlled) Gastrointestinal: Normal bowel sounds, Soft and benign, Non-distended, No tenderness, No masses, No rebound, No guarding Musculoskeletal: No erythema, No tenderness, No warmth Integumentary: No tenderness/swelling, No erythema, No warmth, No cyanosis Neurological: Normal speech, Normal strength at 5/5 x4 extr, Normal tone, Normal affect - Studies Medications List Reviewed: Yes Assessment & Plan Discharge Plan: Home Plan to discharge in: 24 Hours Physician Review Additional Text: Impression: Fever, epigastric abdominal pain, shortness of breath secondary to viral pericarditis/pericardial effusion, right pleural effusion with atelectasis, hepatomegaly/splenomegaly complicated with new onset atrial fibrillation Left lower lobe pneumonia Cholelithiasis Plan: Fever, epigastric abdominal pain, shortness of breath secondary to viral pericarditis/pericardial effusion, right pleural effusion with atelectasis, hepatomegaly/splenomegaly complicated with new onset atrial fibrillation: Patient still in atrial fibrillation, rate controlled. Patient continues on Rythmol, metoprolol and Lovenox. Recent echocardiogram shows decreased pericardial effusion. Case discussed with cardiology yesterday. Plan for today will be cardioversion. Likely home in the next 24 hr. Will need to determine what medication patient will require after cardioversion. Await further recommendations from cardiology. Steroid medication decreased yesterday. Left lower lobe pneumonia: Continue antibiotic therapy. Will provide medication for cough and congestion. Cholelithiasis: This can be further worked up as an outpatient. Time Spent Managing Pts Care (In Minutes): 55
[2018-12-12] MEDS ORDERED: GUAIFENESIN 600 MG SA TAB PO SCH (09:00)
[2018-12-12] MEDS: ENOXAPARIN 100 MG/ML SYR SQ SCH (10:11)
[2018-12-12] MEDS: IBUPROFEN 400 MG TAB PO PRN (10:11)
[2018-12-12] MEDS: AMOX/K CLAV 875 MG TAB PO SCH (10:12)
[2018-12-12] MEDS: FOLIC ACID 1 MG TABLET PO SCH (10:13)
[2018-12-12] MEDS: FAMOTIDINE 20 MG TAB PO SCH (10:13)
[2018-12-12] MEDS: predniSONE 10 MG TAB PO SCH (10:13)
[2018-12-12] MEDS: THIAMINE HCL 100 MG TABLET PO SCH (10:13)
[2018-12-12] MEDS: LACTOBACILLUS/ACIDOPHILUS TAB PO SCH (10:13)
[2018-12-12] MEDS: ASPIRIN EC 81 MG TAB PO SCH (10:13)
[2018-12-12] MEDS: PROPAFENONE HCL 150 MG TAB PO SCH (10:17)
[2018-12-12] MEDS ORDERED: MIDAZOLAM HCL 2 MG/2 ML INJ ONE ×2 (10:36→10:42)
[2018-12-12 10:49] VITALS: O2SAT 94
--- NOTE | 2018-12-12 10:55 | P.DS ---
Admission Date: 12/08/18 Discharge Date: 12/12/18 Primary Care Provider: none Disposition: ROUTINE DISCHARGE Discharge Condition: GOOD Reason for Admission: Fatigue, abdominal pain Consultations: Surgery-Dr. Howard Cardiology-Dr. Martínez/Dr. Russell Procedures: CT scan: FINDINGS: Lung bases: There is a very small right pleural effusion. There is very mild patchy hazy parenchymal opacification in the lung bases which may be due to atelectasis or possibly inflammatory changes. Incidentally noted is a small pericardial effusion measuring approximately 1.2 cm at the level of the left cardiac apex. Liver: The liver is mildly enlarged and measures 19.5 cm in craniocaudal dimension. No focal hepatic abnormalities are identified. Liver attenuation is within normal limits. Spleen: The spleen is top normal in size and measures approximately 12.8 cm in greatest sagittal dimension. No focal splenic abnormalities are identified. Gallbladder and bile duct: The gallbladder is well distended. There are areas of increased attenuation within the gallbladder lumen which may be due to cholelithiasis. There is no biliary ductal dilatation. Pancreas: The pancreas is grossly normal in size and configuration. Adrenal Glands: The adrenal glands are normal in size and configuration. Kidneys: The kidneys are normal in size and configuration. There is no evidence of hydronephrosis. There is no evidence of nephrolithiasis. No definite solid or cystic renal mass lesions are identified. Stomach: The stomach is grossly normal. There is no definite hiatal hernia. Bowel: The bowel gas pattern is non specific and non obstructive. Appendix: The appendix is normal. Free air: There is no evidence of free air. Free fluid: There is a trace amount of ascites within the abdomen and small amount of ascites in the pelvis posterior to the bladder. Vasculature: The aorta is normal in caliber and contour. The inferior vena cava is grossly unremarkable. Lymphadenopathy: No pathologic lymphadenopathy is identified. Bladder: The bladder is well distended and smooth in contour. Reproductive: The prostate gland is grossly within normal limits. Bones: No acute osseous abnormalities are identified. Soft tissues: There is mild infiltration of the mesenteric fat within the right anterior upper quadrant and adjacent to the gallbladder fossa possibly related to underlying acute gallbladder pathology. IMPRESSION: 1. Small pericardial effusion measuring approximately 1.2 cm in diameter at the level of the left cardiac apex. 2. Small right pleural effusion and mild patchy hazy parenchymal opacification in the lung bases which may be due to atelectasis or possibly inflammatory changes. 3. Mild hepatomegaly and borderline splenomegaly. 4. Suspect cholelithiasis. 5. Small amount of ascites in the abdomen and pelvis of uncertain etiology. There is mild infiltration of the mesenteric fat within the right anterior upper quadrant and adjacent to the gallbladder fossa possibly related to underlying acute gallbladder pathology. ABUS: FINDINGS: Gallbladder size is normal. No gallstones are identified. No significant quantity of sludge seen. Gallbladder wall is thickened. There is a trace amount of pericholecystic fluid seen. Common bile duct is normal with no common duct stone identified. IMPRESSION: Gallbladder wall is thickened with pericholecystic fluid. No gallstones identifiable. Findings could represent an acalculous cholecystitis if there are supporting clinical findings. Gallbladder findings are potentially a secondary response to acute hepatic parenchymal disease for a systemic illness not otherwise evident on available imaging. CT Head: FINDINGS: No intracranial hemorrhage, mass, edema or shift of mid-line structures. No acute infarction changes seen. No abnormal extra-axial fluid collections. Ventricles are normal. Mastoid air cells and visualized portions of the paranasal sinuses are clear. No acute bony findings. IMPRESSION: Negative non-contrast CT head examination. CXR: COMPARISON: December 09 FINDINGS: No significant change in mild left basilar lung opacities Cardiac silhouette remains mildly enlarged. IMPRESSION: No change in mild left basilar opacities which may represent atelectasis or pneumonia ECHO: EF 58% LEFT VENTRICULAR WALL MOTION: NORMAL. DOPPLER/COLOR FLOW: NORMAL. COMMENTS: SMALL TO MODERATE PERICARDIAL EFFUSION AROUND THE VENTRICLES. NO TAMPONADE FINDINGS ON ECHO. OTHERWISE NORMAL 2D ECHO WITH DOPPLER. Follow up ECHO: EF 59% LEFT VENTRICULAR WALL MOTION: NORMAL. DOPPLER/COLOR FLOW: NORMAL. COMMENTS: NORMAL LEFT VENTRICULAR EJECTION FRACTION. DILATED LEFT ATRIUM. SMALL PERICARDIAL EFFUSION, DECREASED IN SIZE SINCE 12/08/18. Cardioversion: Successful cardioversion to NSR. Medical Problem List: Fever, epigastric abdominal pain, shortness of breath secondary to viral pericarditis/pericardial effusion complicated with new onset atrial fibrillation likely post infectious related status post cardioversion now in normal sinus rhythm Hepatomegaly/splenomegaly likely related to above Pleural effusion with Bilateral lower lobe pneumonia Cholelithiasis Brief History of Present Illness: 33-year-old male presented to the emergency room with fatigue, abdominal pain. Patient reports that since Thursday he has been feeling somewhat tired. Over the weekend he developed some abdominal pain to the epigastric region. He also reported fever and chills. He went to a urgent care facility on Thursday. He was told that he had ear infection. He was given Cipro and ibuprofen. He was also given Rocephin IM. Patient was to come to the clinic daily for injections of antibiotics thereafter. The following day patient reported increasing abdominal pain to the epigastric region. He rated the pain about a 7/10. He also reported some chest pressure with some shortness of breath. He denied any nausea, and some headaches and fever noted. His condition did not improve. He came to the ER for further evaluation. In the ER patient evaluated. There was some suspicion for cholelithiasis Slight elevation in bilirubin noted. White count 10.7, hemoglobin 14. Sodium 140 , potassium 3.6. Patient was admitted to surgical service for further evaluation. Upon evaluation by surgery CT scan also revealed pericardial effusion, right pleural effusion with atelectasis, and hepatic megaly/splenomegaly. I was consulted for further evaluation. Hospital Course: Patient presented with multiple complaints including fever, epigastric abdominal pain and shortness of breath. Patient recently treated for ear infection. Patient was admitted for further evaluation. Initial CT scan revealed pericardial effusion, hepatomegaly, splenomegaly and pleural effusion. Patient was initially admitted to the surgical service. I was consulted for medical management. This was eventually changed to the hospitalist service. Cardiology was also consulted due to findings on CT scan. Upon further evaluation viral pericarditis was suspected related to pericardial effusion. Autoimmune workup was initiated. So far, labs unremarkable. Hepatitis panel and HIV panel pending at discharge. This can be followed up as an outpatient. Patient was placed on steroid medication for the pericarditis. During the course of the stay his condition slowly improved. However patient converted to atrial fibrillation. Patient was started on metoprolol. Patient continue to remain in atrial fibrillation. Medication-Rythmol was added but no changes identified on medication. Repeat echocardiogram showed improvement of pericardial effusion. Cardiology therefore recommended cardioversion. Patient had cardioversion done with successful change in rhythm to normal sinus rhythm. At discharge patient remains in normal sinus rhythm. Patient will continue with metoprolol 12.5 mg 1 pill twice daily and aspirin 81 mg daily. Recommend to follow up with cardiology in 1 week to follow up this hospitalization. Cardiology will follow up pericarditis and pericardial effusion. As mentioned above, patient had noted pleural effusion on CT scan. Atelectasis was suspected initially. Patient continued to have fever with elevated white count. Pneumonia was identified. Patient was started on antibiotic therapy with improvement. At discharge patient will continue with Augmentin 875 mg 1 pill twice daily for 5 more days. Recommend to recheck chest x-ray in 2-4 weeks to monitor resolution. CT scan also revealed hepatomegaly and splenomegaly suspect viral related. Cholelithiasis was also noted. No evidence of cholecystitis was identified. Surgery recommended no further intervention. It may be followed up as an outpatient. Vital Signs/Physical Exam: Temp Pulse Resp BP Pulse Ox 99.3 F 86 16 149/81 H 95 12/12/18 08:17 12/12/18 08:17 12/12/18 08:17 12/12/18 08:17 12/12/18 08:17 General: Alert, In no apparent distress, Oriented x3, Cooperative HEENT: Atraumatic Neck: Supple Respiratory: Clear to auscultation bilaterally, Normal air movement Cardiovascular: Normal pulses, Regular rate/rhythm Gastrointestinal: Normal bowel sounds, Soft and benign, Non-distended, No tenderness, No masses, No rebound, No guarding Musculoskeletal: No erythema, No tenderness, No warmth Integumentary: No tenderness/swelling, No erythema, No warmth, No cyanosis Neurological: Normal speech, Normal strength at 5/5 x4 extr, Normal tone, Normal affect Laboratory Data at Discharge: WBC 13.0 K/uL (4.3-10.9) H D 12/11/18 07:58 Hgb 13.1 g/dL (13.6-17.9) L 12/11/18 07:58 Hct 38.8 % (39.6-49.0) L 12/11/18 07:58 Plt Count 278 K/uL (152-406) 12/11/18 07:58 Sodium 143 mmol/L (136-145) 12/11/18 05:41 Potassium 4.4 mmol/L (3.5-5.1) 12/11/18 05:41 BUN 21 mg/dL (7-18) H 12/11/18 05:41 Creatinine 1.02 mg/dL (0.55-1.3) 12/11/18 05:41 Glucose 112 mg/dL (74-106) H 12/11/18 05:41 Magnesium 2.5 mg/dL (1.8-2.4) H 12/11/18 05:41 Total Bilirubin 0.4 mg/dL (0.2-1.0) 12/11/18 05:41 AST 34 U/L (15-37) 12/11/18 05:41 ALT 114 U/L (12-78) H 12/11/18 05:41 Alkaline Phosphatase 96 U/L (45-117) 12/11/18 05:41 Lipase 75 U/L (73-393) 12/09/18 04:02 Home Medications: Amox/Clavulanate [Augmentin 875-125 Tab*] 875 mg PO BID #10 tab 12/12/18 Aspirin [Aspirin EC 81 MG] 81 mg PO DAILY #90 tablet. 12/12/18 Metoprolol Tartrate [Lopressor*] 12.5 mg PO BID 6AM 6PM #60 tab 12/12/18 New Medications: Amox/Clavulanate [Augmentin 875-125 Tab*] 875 mg PO BID #10 tab Aspirin [Aspirin EC 81 MG] 81 mg PO DAILY #90 tablet. Metoprolol Tartrate [Lopressor*] 12.5 mg PO BID 6AM 6PM #60 tab Patient Discharge Instructions: 1. Recommend to establish care with a PCP to follow up this hospitalization. 2. Patient presented with multiple complaints including fever, epigastric abdominal pain and shortness of breath. Patient recently treated for ear infection. Patient was admitted for further evaluation. Initial CT scan revealed pericardial effusion, hepatomegaly, splenomegaly and pleural effusion. Patient was initially admitted to the surgical service. I was consulted for medical management. This was eventually changed to the hospitalist service. Cardiology was also consulted due to findings on CT scan. Upon further evaluation viral pericarditis was suspected related to pericardial effusion. Autoimmune workup was initiated. So far, labs unremarkable. Hepatitis panel and HIV panel pending at discharge. This can be followed up as an outpatient. Patient was placed on steroid medication for the pericarditis. During the course of the stay his condition slowly improved. However patient converted to atrial fibrillation. Patient was started on metoprolol. Patient continue to remain in atrial fibrillation. Medication-Rythmol was added but no changes identified on medication. Repeat echocardiogram showed improvement of pericardial effusion. Cardiology therefore recommended cardioversion. Patient had cardioversion done with successful change in rhythm to normal sinus rhythm. At discharge patient remains in normal sinus rhythm. Patient will continue with metoprolol 12.5 mg 1 pill twice daily and aspirin 81 mg daily. Recommend to follow up with cardiology in 1 week to follow up this hospitalization. Cardiology will follow up pericarditis and pericardial effusion. 3. As mentioned above, patient had noted pleural effusion on CT scan. Atelectasis was suspected initially. Patient continued to have fever with elevated white count. Pneumonia was identified. Patient was started on antibiotic therapy with improvement. At discharge patient will continue with Augmentin 875 mg 1 pill twice daily for 5 more days. Recommend to recheck chest x-ray in 2-4 weeks to monitor resolution. 4. CT scan also revealed hepatomegaly and splenomegaly suspect viral related. Cholelithiasis was also noted. No evidence of cholecystitis was identified. Surgery recommended no further intervention. It may be followed up as an outpatient. Diet: AHA Activity: Ad mina Followup: [facility] [Outside] Time spent managing pt's care (in minutes): 55
[2018-12-12] MEDS ORDERED: PROPAFENONE 225 MG CAP PO SCH (14:00)
[2018-12-12 17:37] VITALS: BP 126/80; TEMP 97.8
--- NOTE | 2018-12-12 21:02 | EKG ---
Test Date: 2018-12-12 Test Time: 10:48:04 Application Performance Engineer: LUZ MARINA MEASUREMENT RESULTS: Intervals: Rate: 90 WA: 158 QRSD: 94 QT: 366 QTc: 447 [place]: P: 51 WA: 158 QRS: 46 T: 20 INTERPRETIVE STATEMENTS: Normal sinus rhythm Nonspecific T wave abnormality Abnormal ECG Compared to ECG 12/09/2018 07:53:05 T-wave abnormality now present Atrial fibrillation no longer present ST (T wave) deviation no longer present Possible ischemia no longer present Prolonged QT interval no longer present Electronically Signed On 12-12-18 21:01:59 CDT by Hudson Russell
--- NOTE | 2018-12-12 21:40 | OP ---
Surgeon: Hudson Russell MD Procedure: Cardioversion. Indication: Atrial fib refractory to medical cardioversion, related to pericarditis. Procedure In Detail: The patient was brought to the intensive care unit fasting. He had received his Lovenox and Rythmol. He was sedated with Versed, 7.5 mg was used. It was titrated to an adequate level of sedation. Anterior- posterior paddles were placed on his chest. A single shock 200 joules was delivered, synchronized the QRS complex. This resulted in sinus rhythm. Complications from the procedure, none. ROCIO/STEVIE Voice ID: [id number] Report ID: [id number] CHRIS
[2018-12-13 03:24] LABS: HBsAG Nonreactive (Nonreactive); Hepatitis A IgM Antibody Nonreactive
[2018-12-14 09:02] LABS: HIV AG/AB 4TH GEN Non-reactive (Non-reactive)
== END 2018-12-12 16:55 | disposition home or self-care (01) | DRG 314 ==
LOC: ER 01:02 → ERHOLD 07:11 → 4TH 08:48 → 2ND 12-10 18:30
PROVIDERS: ADMIT Surgery; ATTEND Family Medicine
PROC: 5A2204Z Restoration of Cardiac Rhythm, Single (ICD-10-PCS; principal; 2018-12-12)
DX: I30.1 Infective pericarditis (principal); J18.9 Pneumonia, unspecified organism; J91.8 Pleural effusion in other conditions classified elsewhere; I48.91 Unspecified atrial fibrillation; I31.3 Pericardial effusion (noninflammatory); K80.20 Calculus of gallbladder without cholecystitis without obstruction; R16.2 Hepatomegaly with splenomegaly, not elsewhere classified; R19.7 Diarrhea, unspecified
CPT/HCPCS: 36415; 70450; 71046; 74177; 76705; 80048; 80053; 80074; 80076; 80307; 81003; 81015; 82274; 83036; 83605; 83690; 83735; 84145; 85025; 85652; 86038; 86140; 86308; 86592; 87040; 87045; 87046; 87389; 87493; 93005; 93306; 96361; 96365; 99285; J0456; J0696; J1650; J2250; J2405; J2543; J2704; J2710; J2920; J3010; J7030; J7512; Q9967